=== PATIENT | male | born 1970 | race Caucasian/White ===

== ENCOUNTER → 2016-10-18 | Outpatient (CLI) | payer BC ==
[~2016-10-18] MED LIST: IOPAMIDOL (ISOVUE-300) 100 ML BTL ONE
== END ==
LOC: FIMAGING 15:43
DX: R10.9 Unspecified abdominal pain (principal); K59.00 Constipation, unspecified; R19.7 Diarrhea, unspecified; R14.0 Abdominal distension (gaseous); R63.4 Abnormal weight loss
CPT/HCPCS: Q9967

== ENCOUNTER 2017-11-20 19:26 | Emergency (ER) | payer BC ==
--- NOTE | 2017-11-20 19:45 | EDPHY ---
H & P Stated Complaint: Right foot vs nail Time Seen by Provider: 11/20/17 19:45 HPI/ROS: HPI: This is a 47-year-old male who presents with Chief Complaint: Left foot versus nail Location: Bottom a left foot Quality: Puncture wound of nail Duration: Yesterday afternoon Signs and Symptoms: No bleeding, no radiation, no numbness, no weakness, no tingling, no incontinence, no decreased range of motion, no swelling, no pain, no fever Timing: Acute Severity: Mild Context: Patient is remodeling his home, when he was outside working, and accidentally stepped on a 3 in roof nail. He was wearing tennis shoes at the time. The nail went through the bottom of the sole of the tennis shoe. He estimates that it approximately went 0.5 inch into the heel of his left foot. He was able to pull out the nail in its entirety without any difficulty. He continued to work on the house the remainder of the day. He washed it with soap and water and applied hydrogen peroxide yesterday afternoon. This morning he woke up and noted mild surrounding erythema but no discharge pain, radiation, weakness. Modifying Factors: See above Comment: ROS: A comprehensive 10 system review of systems is otherwise negative aside from elements mentioned in the history of present illness. MEDICAL/SURGICAL/SOCIAL HISTORY: Medical history: Generally healthy. Does not take any regular medications. Surgical history: Right knee surgery Social history: Nonsmoker. . Works at a desk. CONSTITUTIONAL: Well-developed, well-nourished, polite and cooperative middle- aged white male, awake and alert, no obvious distress HEENT: Atraumatic and normocephalic. NECK: supple EXTREMITIES: 2/2 pulses, strength 5/5, left plantar aspect of foot shows small puncture wound near the ball; minimal surrounding erythema but no fluctuance/ streaking/tenderness/warm/the discharge. good light touch sensation. no deformities, no clubbing, no cyanosis or edema. NEUROLOGICAL: no focal neuro deficits. GCS 15. Light touch sensation intact. SKIN: Warm and dry, no erythema. no rash. Good capillary refill. Source: Patient Exam Limitations: No limitations - Personal History Current Tetanus Diphtheria and Acellular Pertussis (TDAP): No - Medical/Surgical History Hx Asthma: No Hx Chronic Respiratory Disease: No Hx Diabetes: No Hx Cardiac Disease: No Hx Renal Disease: No Hx Cirrhosis: No Hx Alcoholism: No Hx HIV/AIDS: No Hx Splenectomy or Spleen Trauma: No Other PMH: right knee sgy - Social History Smoking Status: Never smoked Constitutional: Initial Vital Signs Temperature (C) 36.8 C 11/20/17 19:32 Heart Rate 64 11/20/17 19:32 Respiratory Rate 18 11/20/17 19:32 Blood Pressure 144/84 H 11/20/17 19:32 O2 Sat (%) 97 11/20/17 19:32 O2 Delivery Mode Room Air Allergies/Adverse Reactions: No Known Allergies Allergy (Unverified 11/20/17 19:31) Home Medications: Medication Instructions Recorded levOFLOXACIN [levAQUIN (*)] 750 mg PO DAILY #10 tab 11/20/17 Medical Decision Making ED Course/Re-evaluation: Vital signs reviewed and stable. No systemic signs. Patient has minimal surrounding erythema. No verna signs of cellulitis/abscess. Will start on fluoroquinolone; 1st dose of Levaquin given in the ER and prescription for 10 days. Patient was counseled to immobilize extremity 2-3 days, Surgical marker used to [place]ena edges He was advised that if there is any worsening redness, streaks; he is to return to the emergency room immediately. Tetanus booster provided. No signs of neurovascular compromise/tenting of skin/compartment syndrome/ extremities and joints examined above and below area of concern and are neurovascularly intact. This patient was seen under the supervision of my secondary supervising physician. I evaluated care for this patient independently. Discussed this patient with Dr. Rolon. Differential Diagnosis: Differential diagnosis includes but is not limited to foreign body, cellulitis, abscess. Departure - Departure Disposition: Home, Routine, Self-Care Clinical Impression: Puncture wound of plantar aspect of right foot Qualifiers: Encounter type: initial encounter Qualified Code(s): S91.331A - Puncture wound without foreign body, right foot, initial encounter Condition: Good Instructions: Puncture Wound (ED) Additional Instructions: Activity: Do not bear weight or use injured extremity 48-72 days. Wash the site daily with a antibacterial soap and water; then pat dry. Keep covered with sterile dressing until completely healed. Take antibiotic daily times 10 days. Do not skip a dose. Take Tylenol 650 mg every 4 hours and/or Ibuprofen 600 mg every 8 hours with food as needed for pain. Return to the ER immediately if you experience worsening redness, red streaks, have fevers/chills, flu like symptoms, limited range of motion, or any other symptoms that concern you. Referrals: [facility],. [Clinic] - As per Instructions PCP Not In,Dictionary [Medical Doctor] - As per Instructions Prescriptions: levOFLOXACIN [levAQUIN (*)] 750 mg PO DAILY #10 tab
[2017-11-20] MEDS ORDERED: TDAP ADULT 0.5 ML INJ (BOOSTRIX) IM ONE (19:57)
[2017-11-20 20:18] VITALS: BP 138/79
== END 2017-11-20 20:19 | disposition home or self-care (01) ==
DX: S91.332A Puncture wound without foreign body, left foot, initial encounter (principal); W26.9XXA Contact with unspecified sharp object(s), initial encounter; Y93.H9 Activity, other involving exterior property and land maintenance, building and construction; Y92.007 Garden or yard of unspecified non-institutional (private) residence as the place of occurrence of the external cause; Z23 Encounter for immunization